=== PATIENT | male | born 1985 | race Caucasian/White ===

== ENCOUNTER 2018-10-13 20:51 | Emergency (ER) | payer MEDICARE ==
--- NOTE | ~2018-10-13 | EKG ---
[place], [place] ELECTROCARDIOGRAM REPORT NAME: RHIANNA LAZAR UNIT #: [id number] ROOM: DOCTOR: EPIPHANY DRAFT REPORT BIRTHDATE: [birth year] [facility] Test Date: 2018-10-13 Test Time: 23:14:39 Pat Name: RHIANNA LAZAR Department: Room: Gender: M Pan[place]: SS RESP : 1985 Requested By: CESIA KING Order Number: [id number] Reading MD: Demetrice Grady MD Measurements Intervals [place] Rate: 71 P: 38 IN: 184 QRS: 12 QRSD: 132 T: 2 QT: 424 QTc: 461 Interpretive Statements Sinus rhythm Nonspecific intraventricular conduction delay Borderline repol abnrm, inferolateral leads Baseline wander in lead(s) I,II,aVR,V1,V2,V4,V5,V6 Electronically Signed On 10-26-2018 3:33:16 PDT by Demetrice Grady MD CM:EKGRPT:ELECTROCARDIOGRAM REPORT [id number] CESIA KING MD EPIPHANY DRAFT REPORT CESIA KING MD
[~2018-10-13 20:51] MED LIST: ESCITALOPRAM OX20 MG PO; FLEXERIL10 MG PO; NAPROSYN500 MG PO; NEXIUM20 M1 PO; NEXIUM40 MG PO; QUETIAPINE FUM200 M3 PO; TRAZODONE50 MG PO; VICODIN 5/500 505 MG PO; ZOFRAN ODT4 MG SL
[2018-10-13] MEDS ORDERED: ZONISAMIDE50 M1 PO (21:09)
[2018-10-13 21:38] LABS: BASO # 0.1 10*3/uL (0.0-0.1); BASO % 0.8 % (0.0-1.0); EOS # 0.2 10*3/uL (0.0-0.4); EOS % 2.5 % (1.0-4.0); HEMATOCRIT 45.7 % (42.0-52.0); HEMOGLOBIN 15.1 g/dl (14.0-18.0); LYMPH # 2.5 10*3/uL (1.3-4.4); LYMPH % 25.3 % (27.0-41.0); MEAN CELL VOLUME 92.5 fl (80.0-94.0); MEAN CORPUSCULAR HGB 30.6 pg (27.0-31.0); MEAN PLATELET VOLUME 10.3 fl (9.6-12.3); MONO # 0.6 10*3/uL (0.1-1.0); MONO % 6.4 % (3.0-9.0); NEUT # 6.1 10*3/uL (2.3-7.9); NEUT % 62.7 % (47.0-73.0); PLATELET COUNT AUTOMATED 215 10*3/uL (130-400); RED BLOOD COUNT 4.94 10*6/uL (4.50-5.90); RED CELL DISTRI WIDTH 13.4 % (0-14.5); WHITE BLOOD COUNT 9.7 10*3/uL (4.8-10.8)
[2018-10-13 21:46] LABS: BILIRUBIN NEGATIVE (NEGATIVE); BLOOD TRACE-INTACT (NEGATIVE); CLARITY SL CLOUDY (CLEAR); COLOR YELLOW (YELLOW); GLUCOSE NEGATIVE (NEGATIVE); KETONE NEGATIVE (NEGATIVE); LEUKO ESTERASE NEGATIVE (NEGATIVE); NITRITE NEGATIVE (NEGATIVE); PH 5.5 (5.0-9.0); SPECIFIC GRAVITY >= 1.030 (1.005-1.030); UROBILINOGEN 0.2 E.U./dl (0.2-1.0)
[2018-10-13 21:48] LABS: ACT PARTIAL THROMBO TIME 23.3 SECONDS (20.0-32.1); INTERNATIONAL NORM RATIO 0.9 (2.0-3.5)
[2018-10-13 21:53] LABS: ALBUMIN 4.2 gm/dl (3.1-4.5); ALKALINE PHOSPHATASE 83 U/L (45-117); BUN 17 mg/dl (7-24); CHLORIDE 113 mmol/L (98-107); LIPASE 309 U/L (73-393); POTASSIUM 3.7 mmol/L (3.5-5.1); SGOT/AST 16 IU/L (3-35); SGPT/ALT 41 U/L (12-78); SODIUM 146 mmol/L (136-145); TOTAL PROTEIN 7.4 gm/dL (6.4-8.2)
[2018-10-13] MEDS ORDERED: CLONAZEPAM1 M1 PO (21:53)
[2018-10-13 21:55] LABS: TROPONIN I < 0.015 ng/ml (<0.045)
[2018-10-13 21:55] LABS: URINE AMPHETAMINES < 1000 (1000ng/ml); URINE BARBITURATES < 200 (200ng/ml); URINE BENZODIAZEPINES < 200 (200ng/ml); URINE CANNABINOIDS (THC) > 50 (50ng/ml); URINE COCAINE < 300 (300ng/ml); URINE METHADONE < 300 (300ng/ml); URINE OPIATES < 300 (300ng/ml)
[2018-10-13] MEDS ORDERED: PRILOSEC20 M1 PO (21:55)
[2018-10-13] MEDS ORDERED: TYLENOL325 M3 PO (21:55)
[2018-10-13] MEDS ORDERED: LAMICTAL150 MG PO (21:55)
[2018-10-13 21:57] LABS: URINE PHENCYCLIDINE < 25 (25ng/ml)
[2018-10-13 22:01] LABS: BACTERIA 1+
[2018-10-13 22:02] LABS: WBC 0-2 wbc/hpf (0-5)
== END 2018-10-14 02:49 | disposition home or self-care (01) ==
LOC: ED 20:51
PROVIDERS: Emergency Medicine Emergency Medical Services
DX: G40.909 Epilepsy, unspecified, not intractable, without status epilepticus (principal); Z79.899 Other long term (current) drug therapy

== ENCOUNTER 2019-06-05 14:48 | Emergency (ER) | payer MEDICARE ==
[~2019-06-05] VITALS: Ht 182.8 cm; Wt 107.0 kg
[~2019-06-05 14:48] MED LIST changes: +CLONAZEPAM1 M1 PO; +LAMICTAL150 MG PO; +PRILOSEC20 M1 PO; +TYLENOL325 M3 PO; +ZONISAMIDE50 M1 PO
[2019-06-05 16:20] LABS: BASO # 0.1 10*3/uL (0.0-0.1); BASO % 0.5 % (0.0-1.0); EOS # 0.2 10*3/uL (0.0-0.4); EOS % 1.5 % (1.0-4.0); HEMATOCRIT 44.7 % (42.0-52.0); HEMOGLOBIN 14.9 g/dl (14.0-18.0); LYMPH # 0.9 10*3/uL (1.3-4.4); LYMPH % 7.3 % (27.0-41.0); MEAN CELL VOLUME 92.7 fl (80.0-94.0); MEAN CORPUSCULAR HGB 30.9 pg (27.0-31.0); MEAN CORPUSCULAR HGB CONC 33.3 g/dl (33.0-37.0); MEAN PLATELET VOLUME 10.3 fl (9.6-12.3); MONO # 0.7 10*3/uL (0.1-1.0); MONO % 5.3 % (3.0-9.0); NEUT # 10.5 10*3/uL (2.3-7.9); NEUT % 84.5 % (47.0-73.0); PLATELET COUNT AUTOMATED 188 10*3/uL (130-400); RED BLOOD COUNT 4.82 10*6/uL (4.50-5.90); RED CELL DISTRI WIDTH 12.9 % (0-14.5); WHITE BLOOD COUNT 12.4 10*3/uL (4.8-10.8)
[2019-06-05 16:40] LABS: ALBUMIN 4.1 gm/dl (3.1-4.5); ALKALINE PHOSPHATASE 80 U/L (45-117); BUN 16 mg/dl (7-24); CHLORIDE 113 mmol/L (98-107); CREATININE 1.45 mg/dL (0.70-1.30); POTASSIUM 3.9 mmol/L (3.5-5.1); SGOT/AST 21 IU/L (3-35); SGPT/ALT 52 U/L (12-78); SODIUM 140 mmol/L (136-145); TOTAL PROTEIN 6.9 gm/dL (6.4-8.2)
== END 2019-06-05 17:33 | disposition home or self-care (01) ==
LOC: ED 14:48
PROVIDERS: Emergency Medicine
DX: G40.909 Epilepsy, unspecified, not intractable, without status epilepticus (principal); K21.9 Gastro-esophageal reflux disease without esophagitis; Z79.899 Other long term (current) drug therapy

== ENCOUNTER 2019-11-10 20:18 | Emergency (ER) | payer MEDICARE ==
[~2019-11-10] VITALS: Ht 182.8 cm; Wt 108.9 kg
[2019-11-10] MEDS ORDERED: CEFADROXIL500 M1 PO (22:09)
== END 2019-11-10 22:21 | disposition home or self-care (01) ==
LOC: ED 20:18
DX: S01.111A Laceration without foreign body of right eyelid and periocular area, initial encounter (principal); R56.9 Unspecified convulsions; K21.9 Gastro-esophageal reflux disease without esophagitis; F17.200 Nicotine dependence, unspecified, uncomplicated; Z79.899 Other long term (current) drug therapy; W22.8XXA Striking against or struck by other objects, initial encounter; Y93.89 Activity, other specified; Y92.89 Other specified places as the place of occurrence of the external cause; Y99.8 Other external cause status

== ENCOUNTER 2020-04-15 09:27 | Emergency (ER) | payer MEDICARE, MEDICAID ==
[~2020-04-15] VITALS: Ht 182.8 cm; Wt 97.5 kg
[~2020-04-15 09:27] MED LIST changes: +CEFADROXIL500 M1 PO
[2020-04-15 10:13] LABS: BASO % 0.4 % (0.0-1.0); EOS # 0.1 10*3/uL (0.0-0.4); EOS % 1.6 % (1.0-4.0); HEMATOCRIT 37.6 % (42.0-52.0); LYMPH # 0.7 10*3/uL (1.3-4.4); LYMPH % 9.6 % (27.0-41.0); MEAN CORPUSCULAR HGB 27.8 pg (27.0-31.0); MEAN CORPUSCULAR HGB CONC 31.9 g/dl (33.0-37.0); MEAN PLATELET VOLUME 9.9 fl (9.6-12.3); MONO # 0.4 10*3/uL (0.1-1.0); MONO % 5.5 % (3.0-9.0); NEUT # 5.7 10*3/uL (2.3-7.9); NEUT % 82.2 % (47.0-73.0); PLATELET COUNT AUTOMATED 211 10*3/uL (130-400); RED BLOOD COUNT 4.32 10*6/uL (4.50-5.90); RED CELL DISTRI WIDTH 12.6 % (0-14.5); WHITE BLOOD COUNT 6.9 10*3/uL (4.8-10.8)
[2020-04-15 10:28] LABS: ALBUMIN 3.7 gm/dl (3.1-4.5); ALKALINE PHOSPHATASE 110 U/L (45-117); BUN 10 mg/dl (7-24); CHLORIDE 111 mmol/L (98-107); CREATININE 1.22 mg/dL (0.70-1.30); POTASSIUM 4.1 mmol/L (3.5-5.1); SGOT/AST 22 IU/L (3-35); SGPT/ALT 52 U/L (12-78); SODIUM 142 mmol/L (136-145); TOTAL PROTEIN 7.2 gm/dL (6.4-8.2)
[2020-04-15 10:30] LABS: TROPONIN I < 0.015 ng/ml (<0.045)
== END 2020-04-15 11:27 | disposition home or self-care (01) ==
LOC: ED 09:27
PROVIDERS: Emergency Medicine
DX: R56.9 Unspecified convulsions (principal); K21.9 Gastro-esophageal reflux disease without esophagitis; Z79.2 Long term (current) use of antibiotics; Z79.899 Other long term (current) drug therapy

== ENCOUNTER 2020-10-25 11:02 | Emergency (ER) | payer MEDICARE, MEDICAID ==
[~2020-10-25] VITALS: Ht 182.8 cm; Wt 90.7 kg
[2020-10-25] MEDS ORDERED: LAMOTRIGINE200 MG PO (11:21)
[2020-10-25 11:41] LABS: BASO # 0.1 10*3/uL (0.0-0.1); BASO % 0.7 % (0.0-1.0); EOS # 0.1 10*3/uL (0.0-0.4); EOS % 1.9 % (1.0-4.0); HEMATOCRIT 44.1 % (42.0-52.0); LYMPH # 0.6 10*3/uL (1.3-4.4); LYMPH % 8.2 % (27.0-41.0); MEAN CELL VOLUME 90.4 fl (80.0-94.0); MEAN CORPUSCULAR HGB 28.5 pg (27.0-31.0); MEAN CORPUSCULAR HGB CONC 31.5 g/dl (33.0-37.0); MEAN PLATELET VOLUME 10.5 fl (9.6-12.3); MONO # 0.4 10*3/uL (0.1-1.0); MONO % 5.7 % (3.0-9.0); NEUT # 6.1 10*3/uL (2.3-7.9); NEUT % 82.6 % (47.0-73.0); PLATELET COUNT AUTOMATED 191 10*3/uL (130-400); RED BLOOD COUNT 4.88 10*6/uL (4.50-5.90); RED CELL DISTRI WIDTH 14.5 % (0-14.5); WHITE BLOOD COUNT 7.4 10*3/uL (4.8-10.8)
[2020-10-25 11:59] LABS: ALBUMIN 3.8 gm/dl (3.1-4.5); ALKALINE PHOSPHATASE 98 U/L (45-117); BUN 15 mg/dl (7-24); CHLORIDE 116 mmol/L (98-107); CREATININE 1.59 mg/dL (0.70-1.30); LIPASE 137 U/L (73-393); POTASSIUM 3.9 mmol/L (3.5-5.1); SGOT/AST 11 IU/L (3-35); SGPT/ALT 26 U/L (12-78); SODIUM 146 mmol/L (136-145); TOTAL PROTEIN 7.3 gm/dL (6.4-8.2)
[2020-10-25 12:00] LABS: TROPONIN I < 0.015 ng/ml (<0.045)
== END 2020-10-25 13:14 | disposition home or self-care (01) ==
LOC: ED 11:02
PROVIDERS: Family Medicine
DX: E86.0 Dehydration (principal); G40.909 Epilepsy, unspecified, not intractable, without status epilepticus; Z79.2 Long term (current) use of antibiotics; Z79.899 Other long term (current) drug therapy

== ENCOUNTER 2022-05-20 16:45 | Emergency (ER) | payer MEDICARE, MEDICAID ==
[~2022-05-20] VITALS: Wt 93.0 kg
[~2022-05-20 16:45] MED LIST changes: +LAMOTRIGINE200 MG PO
[2022-05-20 17:32] LABS: BASO # 0.1 10*3/uL (0.0-0.1); BASO % 0.9 % (0.0-1.0); EOS # 0.2 10*3/uL (0.0-0.4); EOS % 3.5 % (1.0-4.0); HEMATOCRIT 44.2 % (42.0-52.0); LYMPH # 1.9 10*3/uL (1.3-4.4); LYMPH % 29.4 % (27.0-41.0); MEAN CELL VOLUME 95.7 fl (80.0-94.0); MEAN CORPUSCULAR HGB 31.8 pg (27.0-31.0); MEAN CORPUSCULAR HGB CONC 33.3 g/dl (33.0-37.0); MONO # 0.5 10*3/uL (0.1-1.0); MONO % 7.9 % (3.0-9.0); NEUT # 3.6 10*3/uL (2.3-7.9); PLATELET COUNT AUTOMATED 157 10*3/uL (130-400); RED BLOOD COUNT 4.62 10*6/uL (4.50-5.90); RED CELL DISTRI WIDTH 14.4 % (0-14.5); WHITE BLOOD COUNT 6.5 10*3/uL (4.8-10.8)
[2022-05-20 17:48] LABS: ALKALINE PHOSPHATASE 58 U/L (46-116); BUN 12 mg/dl (9-23); CHLORIDE 108 mmol/L (98-107); ETHYL ALCOHOL 150.1 mg/dl (<3); SGPT/ALT 25 U/L (10-49); TOTAL PROTEIN 6.7 gm/dL (6.0-8.0)
== END 2022-05-20 19:20 | disposition home or self-care (01) ==
LOC: ED 16:45
PROVIDERS: Physician Assistant
DX: S09.90XA Unspecified injury of head, initial encounter (principal); F10.920 Alcohol use, unspecified with intoxication, uncomplicated; Z79.899 Other long term (current) drug therapy; W18.39XA Other fall on same level, initial encounter; Y93.89 Activity, other specified; Y92.89 Other specified places as the place of occurrence of the external cause; Y99.8 Other external cause status; Y90.9 Presence of alcohol in blood, level not specified

== ENCOUNTER 2022-07-27 16:09 | Emergency (ER) | payer OTHER ==
[~2022-07-27] VITALS: Ht 182.8 cm; Wt 108.0 kg
[2022-07-27] MEDS ORDERED: CLINDAMYCIN HC300 MG PO (17:26)
== END 2022-07-27 18:13 | disposition home or self-care (01) ==
LOC: ED 16:09
DX: K04.7 Periapical abscess without sinus (principal); K21.9 Gastro-esophageal reflux disease without esophagitis; Z98.890 Other specified postprocedural states